=== PATIENT | female | born 1990 | race Caucasian/White ===

== ENCOUNTER 2023-06-21 20:51 | Emergency (ER) | payer BC, OTHER ==
[~2023-06-21] VITALS: Ht 162.6 cm; Wt 104.3 kg
[2023-06-21 20:55] VITALS: BP 149/96; PULSE 98; RESP 16; TEMP 97.7; O2SAT 99
[2023-06-22] MEDS: ACETAMINOPHEN EXTRA STRENGTH 500 MG TAB PO ONE (02:25)
[2023-06-22 02:38] LABS: BASOPHILS % (AUTO) 0.4 % (0.0-2.0); EOSINOPHILS # (AUTO) 0.1 K/uL (0-0.4); EOSINOPHILS % (AUTO) 1.3 % (0.0-4.0); HEMATOCRIT 36.5 % (36-48); HEMOGLOBIN 12.8 g/dL (12.0-16.0); LYMPHOCYTES # (AUTO) 3.6 K/uL (2.5-16.5); LYMPHOCYTES % (AUTO) 43.9 % (20.5-51.1); MEAN CORPUSCULAR HEMOGLOBIN 32 pg (27-31); MEAN CORPUSCULAR HGB CONC 35 g/dL (33-37); MEAN CORPUSCULAR VOLUME 90.7 fL (80-94); MONOCYTES # (AUTO) 0.6 K/uL (0.8-1.0); MONOCYTES % (AUTO) 7.3 % (1.7-9.3); NEUTROPHILS # (AUTO) 3.9 K/uL (1.8-7.7); NEUTROPHILS % (AUTO) 47.1 % (42.2-75.2); PLATELET COUNT (AUTO) 196 K/uL (140-450); RED BLOOD CELL COUNT(AUTO) 4.03 MIL/uL (4.20-5.40); RED CELL DISTRIBUTION WIDTH 12.7 % (11.6-13.7); WHITE BLOOD COUNT (AUTO) 8.3 K/uL (4.8-10.8)
[2023-06-22 02:55] LABS: ANION GAP 14.3 (8-16); CALCIUM 8.7 mg/dL (8.5-10.1); CARBON DIOXIDE 25.6 mmol/L (21-32); CREATININE 0.6 mg/dL (0.6-1.3); POTASSIUM 3.9 mmol/L (3.5-5.1)
[2023-06-22 03:16] VITALS: BP 122/72; PULSE 89; RESP 16; TEMP 97; O2SAT 98
== END 2023-06-22 03:16 | disposition home or self-care (01) ==
LOC: MED 20:51
DX: R07.9 Chest pain, unspecified (principal); I10 Essential (primary) hypertension
CPT/HCPCS: 36415; 71045; 80048; 81025; 84484; 85025; 93005; 99285